=== PATIENT | male | born 1955 | race African-American/Black ===

== ENCOUNTER 2024-04-25 12:17 | Emergency (ER) | payer MEDICARE, MEDICAID ==
[~2024-04-25] VITALS: Ht 177.8 cm; Wt 55.0 kg
[2024-04-25 12:25] VITALS: TEMP 97.6; O2SAT 99
[2024-04-25] MEDS: ALBUTEROL (0.083%) 2.5MG/3ML NEB HHN STA (13:00)
[2024-04-25] MEDS: IPRATROPIUM BROMIDE (0.02%) 0.5MG/2.5ML NEB HHN STA (13:00)
[2024-04-25 13:12] LABS: CHLORIDE 100 mEq/L (98-107); POTASSIUM 4.2 mEq/L (3.5-5.1); SODIUM 146 mEq/L (136-145)
[2024-04-25 13:13] LABS: CALCIUM 9.7 mg/dL (8.7-10.4)
[2024-04-25 13:14] LABS: BASOPHILS % 0.8 % (0.0-2.0); EOSINOPHILS % 0.9 % (0.0-5.0); HEMATOCRIT. 42.3 % (42.0-52.0); HEMOGLOBIN. 13.2 g/dL (14.0-18.0); LYMPHOCYTES % 13.8 % (20.0-50.0); MEAN CORPUSCULAR HEMOGLOBIN 28.8 pg (28.0-32.0); MEAN CORPUSCULAR HGB CONC 31.2 g/dL (31.0-37.0); MEAN CORPUSCULAR VOLUME 92.2 fL (80.0-94.0); MEAN PLATELET VOLUME 8.3 fl (7.4-10.4); NEUTROPHILS % 78.5 % (40.0-76.0); PLATELET 232 x1000/uL (130-400); RED BLOOD CELL COUNT 4.59 mill/uL (4.7-6.1); RED CELL DISTRIBUTION WIDTH 16.9 % (11.6-14.6); WHITE BLOOD COUNT 5.9 x1000/uL (4.5-11.0)
[2024-04-25 13:18] LABS: CREATININE 0.9 mg/dL (0.6-1.3); GLUCOSE 93 mg/dL (70-105); UREA NITROGEN BLOOD 17 mg/dL (9-23)
[2024-04-25 13:19] LABS: TROPONIN I HIGH SENSITIVITY 48 ng/L (3.0-53)
[2024-04-25 13:31] VITALS: PULSE 82; PULSE 90; RESP 22
[2024-04-25] MEDS: IPRATROPIUM/ALBUTEROL 0.5-3(2.5)MG/3ML NEB HHN ONE (13:31)
[2024-04-25 13:35] LABS: CARBON DIOXIDE > 40 mEq/L (21-32)
[2024-04-25 13:57] VITALS: O2SAT 99
[2024-04-25] MEDS: AMLODIPINE 10MG TABLET PO ONE (14:00)
[2024-04-25] MEDS: DEXAMETHASONE 2MG TABLET PO ONE (14:00)
[2024-04-25 14:44] LABS: BG BASE EXCESS 13.9 mmol/L (-2.0-3.0); BG CARBOXYHEMOGLOBIN 2.4 % (0.5-1.5); BG DEOXYHEMOGLOBIN 7.5 % (0.0-5.0); BG FRACTION INSPIRED OXYGEN 21; BG HCO3 ACT 43.3 mmol/L (21.0-28.0); BG METHEMOGLOBIN 0.3 % (0.5-1.5); BG OXYGEN SATURATION 92.3 % (94.0-98.0); BG OXYHEMOGLOBIN 89.8 % (94.0-98.0); BG PH 7.357 (7.350-7.450); BG PO2 64.7 mmHg (83.0-108.0); BG SAMPLE SITE RIGHT RADIAL; BG TOTAL HEMOGLOBIN 14.1 g/dL (13.5-17.5); BG VENT MODE ROOM AIR
[2024-04-25 15:21] VITALS: BP 132/96; PULSE 102
[2024-04-25 15:30] VITALS: RESP 28
== END 2024-04-25 17:38 | disposition left against medical advice (07) ==
LOC: ER 12:31 → EDBEDREQ 13:04 → EDBEDREQSVC 14:55 → EDBEDREQ 14:55 → ER 17:38
DX: J44.1 Chronic obstructive pulmonary disease with (acute) exacerbation (principal); I10 Essential (primary) hypertension
CPT/HCPCS: 99285; 71045; 80048; 85025; 84484; 36415; 82805; 82375; 94660; 93005; 36600; 94640; J8540